=== PATIENT | male | born 1955 | race Caucasian/White ===

== ENCOUNTER 2021-07-18 09:53 | Day surgery (SDC) | payer MEDICARE, OTHER ==
[2021-07-13 15:52] LABS: BASOPHILS % (AUTO) 0.2 % (0-1); EOSINOPHILS # (AUTO) 0.1 X10'3 (0-0.9); EOSINOPHILS % (AUTO) 0.9 % (0-6); LYMPHOCYTES % (AUTO) 12.2 % (21-51); MEAN CORPUSCULAR HEMOGLOBIN 27.7 PG (27.0-31.0); MEAN CORPUSCULAR HGB CONC 32.6 g/dL (33.0-36.5); MEAN CORPUSCULAR VOLUME 84.9 FL (78-98); MEAN PLATELET VOLUME 8.4 FL (7.4-10.4); MONOCYTES # (AUTO) 0.7 X10'3 (0-0.9); MONOCYTES % (AUTO) 8.9 % (2-12); NEUTROPHILS # (AUTO) 6.2 X10'3 (1.8-7.7); NEUTROPHILS % (AUTO) 77.8 % (42-75); PRE OP HEMATOCRIT 49.9 % (42.0-52.0); PRE OP HEMOGLOBIN 16.3 g/dL (14.0-17.9); PRE OP PLATELET COUNT 184 X10'3 (140-440); RED BLOOD COUNT 5.88 X10'6 (4.70-6.10); RED CELL DISTRIBUTION WIDTH 15.8 % (11.5-14.5)
[2021-07-13 16:04] LABS: PRE OP INR 1.1 INR
[2021-07-13 16:08] LABS: ALBUMIN 3.9 G/DL (3.4-5.0); ALKALINE PHOSPHATASE 77 IU/L (46-116); BLOOD UREA NITROGEN 18 MG/DL (7-18); BUN/CREATININE RATIO 12.9 (5.4-32.0); CALCIUM 8.4 MG/DL (8.5-10.1); CHLORIDE 104 MMOL/L (99-107); CREATININE 1.39 MG/DL (0.60-1.10); PRE OP ALT 32 U/L (30-65); PRE OP ANION GAP 5 (8-16); PRE OP AST 22 U/L (10-37); PRE OP BILIRUB, TOTAL 1.5 MG/DL (0.0-1.0); PRE OP GLUCOSE 77 MG/DL (70-104); PRE OP POTASSIUM 4.7 MMOL/L (3.4-5.1); PRE OP SODIUM 141 MMOL/L (135-145); TOTAL CARBON DIOXIDE 31.8 MMOL/L (24-32); TOTAL PROTEIN 7.8 G/DL (6.4-8.2); eGFR 51 ML/MIN
[2021-07-18] VITALS (33 sets, daily range): BP systolic 111–155; BP diastolic 51–91
[~2021-07-18] VITALS: Ht 182.9 cm; Wt 94.8 kg
[~2021-07-18 09:53] MED LIST: OMEP40CA21 PO; ceFAZolin 2gm in dextrose, iso 50 ML IV ONE; famotidine 20mg tablet PO ONE; morphine 2 MG/ML inj. syringe IV PRN; ondansetron/PF 4mg/2ml inj IV PRN; proCHLORperazine 10 MG/2 ml inj IV PRN; ringers solution, lacted 1,000 ML IV SCH; tranexamic acid inj. 1,000 MG in normal saline 100ml IV soln 90 ML IV ONE; vancomycin 1,500 MG in NS 300ml IV soln IV ONE
[2021-07-18] MEDS ORDERED: metoclopramide 10mg tablet PO ONE (10:10)
[2021-07-18] MEDS: ringers solution, lacted 1,000 ML IV SCH ×2 (10:12→18:32)
[2021-07-18] MEDS ORDERED: vancomycin 1,000mg inj ONE (11:03)
[2021-07-18] MEDS ORDERED: PHENYLephrine 10mg/ml 5ml injection IV ONE (11:34)
[2021-07-18] MEDS ORDERED: ePHEDrine 50MG/ML INJ. ONE (11:34)
[2021-07-18] MEDS ORDERED: fentaNYL/PF 50MCG/1 ML 2ML syringe ONE ×2 (11:46→17:02)
[2021-07-18] MEDS ORDERED: MIDAZolam 1mg/ml 10ml vial ONE (11:46)
[2021-07-18] MEDS ORDERED: BUPIVAcaine/PF 7.5mg/ml (0.75%) 10ml vial ONE (11:56)
[2021-07-18] MEDS ORDERED: albumin (Human) 5% 250ml 250 ML IV ONE (13:52)
--- NOTE | 2021-07-18 14:05 | NUR ---
PT ARRIVED TO RECOVERY ROOM VIA BED ACCOMPANIED BY DR. VICTORIA, ANESTHESIA -REPORT GIVEN, VSS, PT AWAKE, DENIES PAIN, +BLE PULSES PRESENT, DRSG TO RIGHT HIP-LIZETTE CDI WITH ADDUCTOR PILLOW BETWEEN LEGS, NOTED TO HAVE BILAT MOVEMENT TO LE, SENSATION NOTED TO BE AT T-11 ON RIGHT SIDE ONLY, F/C PRESENT (PLACED IN OR)-NOTED TO HAVE BLOODY OUTPUT UPON ARRIVAL, NO HX OF PROSTATE PROBLEMS NOTED. 18G PIV TO LEFT HAND-LR RUNNING AT 100ML/HR, SCDS ON
[2021-07-18] MEDS ORDERED: HYDROcodone/acetaminophen 10/325mg tab PO PRN ×2 (14:10)
[2021-07-18] MEDS ORDERED: ondansetron/PF 4mg/2ml inj IV PRN (14:10)
[2021-07-18] MEDS ORDERED: acetaminophen 325mg tablet PO PRN (14:10)
[2021-07-18] MEDS ORDERED: HYDROmorphone 1 mg/ml syringe IV PRN (14:10)
[2021-07-18] MEDS ORDERED: magnesium hydroxide 30ml (MOM) UD suspension PO PRN (14:10)
[2021-07-18] MEDS ORDERED: diphenhydrAMINE 25mg capsule PO PRN ×2 (14:10)
[2021-07-18] MEDS: potassium Cl 20mEq in NS 1,000 ML IV SCH (14:10)
[2021-07-18] MEDS ORDERED: bisacodyl 10mg suppository rectal RC PRN (14:10)
--- NOTE | 2021-07-18 14:55 | NUR ---
PT SENSATION RETURNING-NOTED TO HAVE FEELING BILAT LE, +PULSES PRESENT BLE, SLIGHT ACHE TO RIGHT HIP /, VSS, NO CHANGE TO BLOODY DRAINAGE FROM F/C.
--- NOTE | 2021-07-18 15:07 | NUR ---
Patient in room . I have received report from Lucero Carrion and had the opportunity to ask questions and assume patient care.
[2021-07-18] MEDS: morphine 4 MG/ML inj SYRINge IV PRN ×3 (15:14→15:43)
--- NOTE | 2021-07-18 15:48 | NUR ---
upon receiving report Lucero said pt had bloody urine when placing lim cath in OR. Pt is till not up on the floor and RN said they would bring pt up when urine was better in color. called back to recovery to talk to Lucero and check up on pts bloody urine, she stated that [facility] is aware. Also stated that pt is having severe pain, she received ordered from anesthesiologist for some pain meds to better control before bringing pt up to the floor.
[2021-07-18] MEDS ORDERED: HYDROmorphone inj. 0.5 MG/0.5 ML DISP.SYRIN IV PRN (15:55)
[2021-07-18] MEDS ORDERED: acetaminophen 1,000mg/100ml IV 100 ML IV ONE (15:55)
[2021-07-18] MEDS ORDERED: HYDROmorphone/PF 0.2 MG/ML SYRINGE ONE (16:05)
[2021-07-18] MEDS ORDERED: ketamine 10mg/ml 20ml inj vial IV ONE (16:20)
[2021-07-18] MEDS ORDERED: fentaNYL/PF 50MCG/1 ML 2ML syringe IV ONE ×2 (16:55→17:25)
[2021-07-18] MEDS ORDERED: oxyCODONE/APAP 10/325mg tablet PO PRN (17:00)
[2021-07-18] MEDS: oxyCODONE/APAP 10/325mg tablet PO PRN (17:11)
--- NOTE | 2021-07-18 18:00 | NUR ---
PT STILL HAVING EXCESSIVE PAIN TO RIGHT HIP, PULSES GOOD, SENSATION INTACT, DRSG-CDI, BOTH DR'S ESME AND VINI CALLED FOR ORDERS. GIVEN PAIN MEDS ORDERED TO HELP WITH PAIN WITH MINIMAL RELIEF. PT FINALLY SOMEWHAT COMFORTABLE 6/10 AFTER FENTANYL AND PERCOCET GIVEN, PT ABLE TO RELAX A BIT AND COMMUNICATE WITH VIA PHONE.
--- NOTE | 2021-07-18 18:14 | NUR ---
Patient in room . I have received report from RUCHI Good and had the opportunity to ask questions and assume patient care.
--- NOTE | 2021-07-18 18:25 | NUR ---
Patient in room . I have received report from RUCHI Barker and had the opportunity to ask questions and assume patient care.
--- NOTE | 2021-07-18 18:45 | NUR ---
PT VSS, DRSG CDI WITH LIZETTE INTACT, +2 PULSES TO BLE, ADDUCTOR PILLOW REMOVED TO SEE IF IT HELPS RELIEVE ANY OF THE PAIN, ICE TO EXTREMITY WELL, PT C/O BURNING AT INCISION SITE-DR. MARTINI AWARE, WANTS TO TRY PERCOCET FOR THE PAIN INSTEAD OF NORCO-RELAYED THAT INFORMATION TO PRIMARY RN ON FLOOR WHEN CALLING REPORT, PT DOES HAVE DILAUDID IV TO USE IN BETWEEN PILLS, PT STILL HAVING RED DRAINAGE FROM F/C BUT APPEARS TO BE LIGHTENING SLOWLY, REPORT CALLED TO RUCHI DANGELO-ALL QUESTIONS ANSWERED, TAKEN VIA BED WITH BELONGINGS BY Jacked, SPOKE WITH AND DIRECTED HER TO PT'S ROOM.
--- NOTE | 2021-07-18 18:55 | NUR ---
Pt arrived to floor. Respirations even and unlabored. VSS. Patient c/o 04/12 pain. Will reassess. Addendum: 07/18/21 at 195 by Lina Moise RN Pt has abductor pillow in bed but is not placed. Refusing at this time.
[2021-07-18] MEDS: ceFAZolin/D5W- 1GM premix 50 ML IV SCH (19:36)
[2021-07-18] MEDS ORDERED: vancomycin/NS 1 GM ADD-VANTAGE 250 ML IV SCH (20:00)
[2021-07-18] MEDS ORDERED: naloxone 0.4 mg/ml inj IV PRN (20:55)
[2021-07-18] MEDS ORDERED: CADD PCA waste documentation MC PRN (20:55)
--- NOTE | 2021-07-18 20:55 | NUR ---
Spoke w/Dr. Todd in regards to pt pain 10/10 after exhausing all options. Pt states that in previous shoulder surgery he had the same problem, the pain medications had the opposite effect on him. Dr. Todd stated to start a Dilaudid CADD at .3 demand dose and to keep percocet 10/325 PRN q4. DC'd percocet 10 x 2, and dilaudid 1mg. Advised MD that the patient is refusing ice application and abductor pillow stating that they hurt more than help. MD states ok to remove.
[2021-07-18] MEDS ORDERED: sennosides 8.6mg tablet PO SCH (21:00)
[2021-07-18] MEDS: HYDROmorph./NS 0.2 mg/ml CADD 100 ML IV SCH ×2 (21:36→23:00)
[2021-07-19] VITALS: BP 129/70
[2021-07-19] MEDS: oxyCODONE/APAP 10/325mg tablet PO PRN (00:01)
[2021-07-19] MEDS: ceFAZolin/D5W- 1GM premix 50 ML IV SCH (00:03)
--- NOTE | 2021-07-19 00:12 | NUR ---
Patient has received 2300 mg of acetaminophen whereas the system states 4900 mg exceeding his daily dose. Called and spoke with August in pharmacy to verify calculations. Pharmacist concurs.
[2021-07-19] MEDS: HYDROmorph./NS 0.2 mg/ml CADD 100 ML IV SCH ×6 (01:00→11:00)
[2021-07-19 04:00] VITALS: BP 131/69
[2021-07-19] MEDS: potassium Cl 20mEq in NS 1,000 ML IV SCH (04:34)
--- NOTE | 2021-07-19 05:51 | NUR ---
Student documentation: I have reviewed and agree with all interventions, assessments performed and documented by Aisha Burt.
--- NOTE | 2021-07-19 06:00 | NUR ---
Patient in room [facility]. I have received report from RUCHI Dumont and had the opportunity to ask questions and assume patient care.
[2021-07-19 06:02] LABS: BASOPHILS % (AUTO) 0.1 % (0-1); EOSINOPHILS % (AUTO) 0.6 % (0-6); HEMATOCRIT 39.4 % (42.0-52.0); HEMOGLOBIN 12.8 g/dl (14.0-17.9); LYMPHOCYTES # (AUTO) 0.7 X10'3 (1.1-4.8); LYMPHOCYTES % (AUTO) 9.8 % (21-51); MEAN CORPUSCULAR HEMOGLOBIN 27.8 PG (27.0-31.0); MEAN CORPUSCULAR HGB CONC 32.6 g/dL (33.0-36.5); MEAN CORPUSCULAR VOLUME 85.2 FL (78-98); MEAN PLATELET VOLUME 8.4 FL (7.4-10.4); MONOCYTES # (AUTO) 0.6 X10'3 (0-0.9); NEUTROPHILS # (AUTO) 5.9 X10'3 (1.8-7.7); NEUTROPHILS % (AUTO) 81.5 % (42-75); PLATELET COUNT 126 X10'3 (140-440); RED BLOOD COUNT 4.63 X10'6 (4.70-6.10); RED CELL DISTRIBUTION WIDTH 15.2 % (11.5-14.5); WHITE BLOOD COUNT 7.2 X10'3 (4.5-11.0)
--- NOTE | 2021-07-19 06:22 | NUR ---
Problems reprioritized. Patient report given, questions answered & plan of care reviewed with Néstor.
--- NOTE | 2021-07-19 06:22 | NUR ---
Patient in room [facility]. I have received report from RUCHI Ortega and had the opportunity to ask questions and assume patient care.
[2021-07-19 06:31] LABS: ALANINE AMINOTRANSFERASE 22 U/L (12-78); ALBUMIN 2.8 G/DL (3.4-5.0); ALKALINE PHOSPHATASE 61 IU/L (46-116); ANION GAP 5 (8-16); ASPARTATE AMINO TRANSFERASE 23 U/L (10-37); BILIRUBIN,TOTAL 1.9 MG/DL (0.1-1.0); BLOOD UREA NITROGEN 13 MG/DL (7-18); BUN/CREATININE RATIO 10.5 (5.4-32.0); CALCIUM 7.7 MG/DL (8.5-10.1); CHLORIDE 106 MMOL/L (99-107); CREATININE 1.24 MG/DL (0.60-1.10); GLUCOSE 86 MG/DL (70-104); POTASSIUM 4.2 MMOL/L (3.5-5.1); SODIUM 140 MMOL/L (135-145); TOTAL CARBON DIOXIDE 28.7 MMOL/L (24-32); TOTAL PROTEIN 5.7 G/DL (6.4-8.2); eGFR 58 ML/MIN
--- NOTE | 2021-07-19 06:45 | NUR ---
Patient in room [facility]. I have received report from Julia HOPPER and had the opportunity to ask questions and assume patient care.
[2021-07-19 07:00] VITALS: BP 136/78
[2021-07-19] MEDS ORDERED: pantoprazole 40mg Tablet.DR PO SCH (08:00)
--- NOTE | 2021-07-19 08:00 | NUR ---
Student documentation: I have reviewed and agree with all interventions, assessments performed and documented by Rosa Mccabe [place] Student.
[2021-07-19] MEDS ORDERED: aspirin 81mg tab.chew PO SCH (08:30)
[2021-07-19 11:00] VITALS: BP 131/77
[2021-07-19] MEDS ORDERED: OXYC1TAB17 PO (11:58)
[2021-07-19] MEDS ORDERED: oxyCODONE IR 5mg (immed. release) tablet PO ONE (12:50)
[2021-07-19] MEDS ORDERED: LORazepam 0.5 MG tablet PO STA (12:53)
[2021-07-19] MEDS ORDERED: oxyCODONE IR 5mg (immed. release) tablet PO STA (12:59)
[2021-07-19] MEDS ORDERED: ketorolac tromethamine 15mg/ml inj. IV ONE (14:25)
[2021-07-19] MEDS ORDERED: ASPI81TA53 PO (16:32)
--- NOTE | 2021-07-19 17:15 | NUR ---
PT Dc to home with . Pt A & O x4 and in no apparent distress. pt and verbalized understanding of ALL DC orders. pt educated on kelly dressing, instructions on how to move around and use the proper techniques. Pt educated about pain meds and follow up with Dr Dominique. Pt got dressed and wheeled to the front where his took him home to [place]. Pt's IV removed Intact.
[2021-07-19] MEDS ORDERED: ketorolac trometh. 30mg/ml inj. IV SCH (20:00)
== END 2021-07-19 17:15 | disposition home or self-care (01) ==
LOC: PAS 09:53 → SUR 3N 18:47 → PAS 07-19 17:15
PROVIDERS: ATTEND Orthopaedic Surgery
DX: M16.11 Unilateral primary osteoarthritis, right hip (principal); K21.9 Gastro-esophageal reflux disease without esophagitis; Z79.01 Long term (current) use of anticoagulants; Z20.822 Contact with and (suspected) exposure to COVID-19; Z79.899 Other long term (current) drug therapy; Z98.84 Bariatric surgery status; Z98.890 Other specified postprocedural states; Z87.891 Personal history of nicotine dependence; Z88.8 Allergy status to other drugs, medicaments and biological substances
CPT/HCPCS: 27130; 36415; 80053; 82948; 85025; 85610; 85730; 86885; 86900; 86901; 86920; 87081; 97110; 97116; 97161; 97530; C1758; C1776; J0131; J0690; J1170; J1885; J2250; J2270; J2370; J3010; J3370; J3480; J3490; J7040; P9045; Q0163; U0003; U0005; Z7506; Z7508; Z7512; A4618; A6258; A6449; A7000; G0378; J7120; J8597